=== PATIENT | female | born 1990 | race Hispanic/Latino ===

== ENCOUNTER 2021-01-25 14:16 | Emergency (ER) | payer OTHER, MEDICAID, SELFPAY ==
[2021-01-25 14:42] VITALS: BP 112/62; PULSE 67; RESP 16; TEMP 37.7; O2SAT 98
--- NOTE | 2021-01-25 15:32 | ED.GENADULT ---
HPI - General Adult General Chief complaint: Urogenital-Female Stated complaint: VAGINAL INFECTION Time Seen by Provider: 01/25/21 15:11 Source: patient Mode of arrival: Ambulatory Limitations: language barrier History of Present Illness HPI narrative: Patient is a 30-year-old female who is here for evaluation of what was initially described as a vaginal infection. She is Nepali-speaking only. Her is here in the emergency department and does speaking Monegasque and stated that he will provide translation support. I did offer the translation line but the patient and her declined stating that he would be happy to do this. The report is that for the past couple days the patient has been describing burning in her vaginal region. She is also having some discharge. There is no back pain. No fevers. She is also describing some ?lumps? down around her vaginal region. She is unsure as to how long they have been there but has only noticed them over the past couple days. No change in bowel habits. No fevers. No prior history of sexually transmitted infections. No urinary symptoms. Related Data Previous Rx's Medication Instructions Recorded fluconazole [Diflucan] 150 mg PO DAILY #1 tab 01/25/21 Review of Systems Constitutional Constitutional: Denies fever(s) Gastrointestinal Gastrointestinal: Reports system reviewed and no additional complaints, except as documented Genitourinary Genitourinary: Denies dysuria Genitourinary: Denies abnormal vaginal bleeding and Denies dysuria Comments: Vaginal itching, vaginal discharge, lumps around the vaginal region. Musculoskeletal Musculoskeletal: Reports system reviewed and no additional complaints, except as documented Integumentary/Breasts Comments: Lumps around her vaginal region Hematologic/Lymphatic On Anticoagulants: No Allergic/Immunologic Allergic/Immunologic: Reports system reviewed and no additional complaints, except as documented Patient History Medical History Healthy adult Social History marital status: lives independently: Yes Exam Initial Vital Signs Initial Vital Signs: Vital Signs Temperature 99.8 F H 01/25/21 14:42 Pulse Rate 67 01/25/21 14:42 Respiratory Rate 16 01/25/21 14:42 Blood Pressure 112/62 01/25/21 14:42 Pulse Oximetry 98 01/25/21 14:42 Const General: cooperative, comfortable and well developed [facility] Head: normal to inspection and normocephalic Resp Effort & Inspection: normal respiratory effort Cardio Rate: regular rate GI Inspection: non-distended Palpation: soft and No tender Other: Patient does have a fairly thick vaginal discharge. Her cervix is unremarkable. There are no lesions consistent with herpes. She does have some bumps on her skin on the left labia majora however these do not have the appearance of warts. Also do not have the appearance of herpes. Also do not have the appearance of molluscum. The look more like nevi. She has no cervical motion tenderness. Skin Other: see section Neuro General: patient alert and patient awake Extrem General: normal exam except as noted Psych Appearance: grossly normal and well kempt Course Vital Signs Vital signs: Vital Signs - 8 hr 01/25/21 14:42 Temperature 99.8 F H Pulse Rate 67 Respiratory Rate 16 Blood Pressure 112/62 Pulse Oximetry 98 Medical Decision Making Lab Data Lab results reviewed: Yes I reviewed the patient's lab results. Labs: Lab Results 01/25/21 01/25/21 Range/Units 16:57 16:57 Urine Color Yellow Urine Appearance Clear Urine pH 6.0 (4.5-8.0) Ur Specific [place] 1.020 (1.000-1.035) Urine Protein Negative (Negative) Urine Glucose (UA) Negative (Negative) g/dL Urine Ketones Trace H (NEGATIVE) Urine Occult Blood 2+ H (Negative) Urine Nitrate Negative (Negative) Urine Bilirubin Negative (NEGATIVE) Urine Urobilinogen 0.2 (0.2) E.U./dL Ur Leukocyte Esterase Negative (NEGATIVE) Urine RBC 1-5/hpf (0-5/HPF) Urine WBC None seen (0-5/HPF) Ur Squamous Epith Cells 0-1 /hpf (0-5/HPF) Urine Bacteria None seen (None) Ur Culture Indicated? Cult not indicated Urine Test Negative (Negative) MDM Narrative Medical decision making narrative: test is negative, urinalysis is unremarkable. She does have white blood cells but negative clue cells, yeast, Trichomonas. GC and chlamydia pending at the time of discharge. Patient's symptoms are fairly consistent with a yeast infection. She does have a thick discharge and is having quite a bit of burning and itching. This is in the setting of having no yeast noted on the samples. I think despite the sample resolved given her symptoms we will give a prescription for Diflucan. I feel we can hold on any other antibiotics for now. The bumps that she describes around her vagina appeared to be more nevi. They do not have the appearance of herpes or molluscum or warts. I did discuss all this with the patient. This was through her who is providing translation because they declined the translation line. Patient was given return precautions. She expressed understanding and agreement. Discharge Plan Departure Patient Disposition: Home Clinical Impression: Vaginitis Instructions: DI for Vaginal Itching Activity Restrictions/Additional Instructions: In order to try and treat your symptoms we will try a antibiotic. This is a 1 time dose of a medicine called Diflucan. I recommend that you contact the health resource is coordinator [phone] to establish a primary provider. Return to the emergency department for any new or worsening symptoms Prescriptions: New fluconazole [Diflucan] 150 mg tablet 150 mg PO DAILY Qty: 1 RF: 0
[2021-01-25 16:58] LABS: Bacteria Urine None Seen; WBC Urine None Seen (0-5/HPF)
[2021-01-25 17:02] LABS: Appearance Urine UA CLEAR; Bilirubin Urine UA NEGATIVE (NEGATIVE); Color Urine UA YELLOW; Glucose Urine UA NEGATIVE (Negative); Ketones Urine UA TRACE (NEGATIVE); Leukocyte Esterase Urine UA NEGATIVE (NEGATIVE); Nitrite Urine UA NEGATIVE (Negative); Occult Blood Urine UA 2+ (Negative); Protein Urine UA NEGATIVE (Negative); Urobilinogen Urine UA 0.2 E.U./dL (0.2)
[2021-01-25 17:07] LABS: Pregnancy Test Urine Negative (Negative)
[2021-01-25 17:08] LABS: Culture Indicated Urine Cult Not Indicated; RBC Urine 1-5/HPF (0-5/HPF); Squamous Epithelial Cell Urine 0-1 /HPF (0-5/HPF)
[2021-01-28 03:12] LABS: Chlamydia trachomatis Negative (Negative); Mycoplasma genitalium Negative (Negative); Neisseria gonorrhoeae Negative (Negative)
== END 2021-01-25 18:14 | disposition home or self-care (01) ==
PROVIDERS: Emergency Provider Emergency Medicine
DX: N76.0 Acute vaginitis (principal)
CPT/HCPCS: 81001; 81025; 87210; 87220; 87491; 87563; 87591; 99281; 99282